=== PATIENT | female | born 1955 | race Caucasian/White ===

== ENCOUNTER → 2017-07-31 | Outpatient (CLI) | payer BC ==
--- NOTE | 2017-07-31 13:24 | MAMMOGRAPHY REPORT ---
BILATERAL DIGITAL SCREENING MAMMOGRAM TOMOSYNTHESIS WITH CAD: 07/31/2017 CLINICAL HISTORY: Routine screening. TECHNIQUE: Breast tomosynthesis in addition to standard 2D mammography was performed. Current study was also evaluated with a Computer Aided Detection (CAD) system. COMPARISON: Comparison is made to exams dated: 05/19/2016 mammogram, 05/02/2016 mammogram, 5 mammogram, 03/01/2014 mammogram, 08/02/2012 mammogram, and 07/30/2011 mammogram - [facility]. BREAST COMPOSITION: There are scattered areas of fibroglandular density in both breasts. FINDINGS: No suspicious masses, calcifications, or areas of architectural distortion are noted in ei ther breast. There has been no significant interval change compared to prior exams. Right lateral br east asymmetry appears stable to prior exams including the 2008 exam and is compatible with normal fi broglandular tissue. Bilateral benign-appearing calcifications are not significantly changed. IMPRESSION: ACR BI-RADS CATEGORY 2: BENIGN There is no mammographic evidence of malignancy. A 1 year screening mammogram is recommended. The pa tient will receive written notification of the results. Approximately 10% of breast cancers are not detected with mammography. A negative mammographic report should not delay biopsy if a clinically suggestive mass is present. Leticia Shaw M.D. /:07/31/2017 12:02:56 Hot Repairman: Evette HANSON)([place]), [facility] letter sent: Normal 1/2 BI-RADS Code: ACR BI-RADS Category 2: Benign
== END | disposition home or self-care (01) ==
LOC: C.MAMM 10:40
PROVIDERS: ATTEND Obstetrics & Gynecology
DX: Z12.31 Encounter for screening mammogram for malignant neoplasm of breast (principal)

== ENCOUNTER → 2018-02-03 | Day surgery (SDC) | payer BC ==
[2018-01-28 11:06] VITALS: Ht 162.6 cm; Wt 61.4 kg
[~2018-02-03] VITALS: Ht 162.6 cm; Wt 61.4 kg
[~2018-02-03] MED LIST: B-CO-25 PO; CALC-51 PO; COEN100C7 PO; FLAX12003 PO; FOLITAB13 PO; GLUCTAB7 PO; LIDOCAINE HCL 2% 2 ML VIAL (20MG/ML) ONE; LUTE15CA PO; LUTE6TAB PO; MAGN400T6 PO; MULT-506 PO; NIAC500T11 PO; OMEGCAP2 PO; PROPOFOL IV EMULSION 10 MG/ML 20 ML VIAL ONE; SODIUM CHLORIDE 0.9% 500ML 500 ML IV ONE
--- NOTE | 2018-02-03 10:46 | Endo History and Physical ---
History & Physical Date of Service: Feb 03, 2018. Chief Complaint: Screening Referring Physician: SHERYL Fleming History of Present Illness 62 yo CF who presents for screening colonoscopy. Past Surgical History Hx Cardiac Surgery: No Hx Internal Defibrillator: No Hx Pacemaker: No Hx Abdominal Surgery: Yes (APPY, TUBAL LIGATION) Hx of Implantable Prosthesis: No Hx Post-Op Nausea and Vomiting: No Hx Cancer Surgery: No Hx Thoracic Surgery: No Hx Orthopedic: No Hx Urinary Tract Surgery: No Family History None Social History Smoking Status: Former Smoker Hx Substance Use: Yes (MARIJUANA 3X A WEEK (ADVISED)) Hx Alcohol Use: Yes (RARELY) Allergies Coded Allergies: Hornet Venom (Verified Allergy, Intermediate, HIVES, 02/03/18) Wasp (Verified Allergy, Intermediate, HIVES, 02/03/18) Current Medications Reported Home Medications Medications Dose Route/Sig Max Daily Dose Days Date Category Niacin 500 Mg Tab 500 Mg PO DAILY 01/28/18 Reported Flaxseed Oil (Flaxseed (Linseed)) 1 Cap Cap 1 Cap PO DAILY 01/28/18 Reported Lutein (Lutein-Zeaxanthin) 1 Cap Cap 1 Cap PO DAILY 01/28/18 Reported Lutein W/Zeaxanthin (Lutein-Zeaxanthin) 1 Tab Tab 1 Tab PO DAILY 01/28/18 Reported Folic Acid Xtra (Folic Acid-Vit B2-Vit B6-Vit B) 1 Tab Tab 100 Mcg PO DAILY 01/28/18 Reported Super B Complex Maxi (B-Complex W/ Folic Acid) 1 Tab Tab 1 Tab PO DAILY 01/28/18 Reported Coq10 (Coenzyme Q10 (Ubidecarenone)) 100 Mg Cap 1 Tab PO DAILY 01/28/18 Reported Glucosamine Chondroitin (Hwrhtpivwig-Wpipzekfkgc-Bdh C-) 1 Tab Tab 1 Tab PO DAILY 01/28/18 Reported Mag-Ox (Magnesium Oxide) 400 Mg Tab 400 Mg PO DAILY 01/28/18 Reported Calcium (Calcium Carbonate-Vitamin D) 1 Tab Tab 1 Tab PO DAILY 01/28/18 Reported Fish Oil ([place]-3 Fatty Acids) 1 Cap Cap 1 Cap PO DAILY 01/28/18 Reported Multivitamin (Multivitamins) Tab 1 Tab PO DAILY 01/28/18 Reported Vital Signs Weight (Kilograms): 61.36 Height (Feet): 5 Height (Inches): 4 Date Time Temp Pulse Resp B/P (MAP) Pulse Ox O2 Delivery O2 Flow Rate FiO2 02/03/18 09:47 36.7 54 18 122/75 (91) 100 Room Air Physical Exam General Appearance: WD/WN, no apparent distress Respiratory/Chest: Auscultation: breath sounds normal Cardiovascular: Heart Auscultation: RRR Abdomen: Bowel Sounds: normal Inspection & Palpation: soft, non-distended, no tenderness, guarding & rebound Assessment and Plan Assessment: 62 yo CF who presents for screening colonoscopy. Plan: Proceed with colonoscopy.
[2018-02-03 11:49] VITALS: BP 100/89; PULSE 60; O2SAT 98
--- NOTE | 2018-02-03 12:03 | Anesthesiology Progress Note ---
Anesthesia Post Op Note Date & Time Feb 03, 2018 at 12:02 Vital Signs Pain Intensity: 0 Vital Signs Past 12 Hours Date Time Temp Pulse Resp B/P (MAP) Pulse Ox O2 Delivery O2 Flow Rate FiO2 02/03/18 11:49 60 20 100/89 (93) 98 Room Air 02/03/18 11:34 67 20 109/80 (90) 100 Room Air 02/03/18 11:19 66 20 119/75 (90) 98 Room Air 02/03/18 09:47 36.7 54 18 122/75 (91) 100 Room Air Notes Mental Status: alert / awake / arousable, participated in evaluation Pt Amnestic to Procedure: Yes Nausea / Vomiting: adequately controlled Pain: adequately controlled Airway Patency, RR, SpO2: stable & adequate BP & HR: stable & adequate Hydration State: stable & adequate Anesthetic Complications: no major complications apparent
--- NOTE | 2018-02-03 12:16 | GI REPORT ---
Patient Name: Nam Dubose Procedure Date: 02/03/2018 10:55 AM Date of : 1955 Admit Type: Outpatient Age: 62 Gender: Female Attending MD: Reji Bardales DO Procedure: Colonoscopy Providers: Reji Bardales DO Referring MD: SHERYL Dickey Indications: Screening for colorectal malignant neoplasm Medicines: Monitored Anesthesia Care Complications: No immediate complications. Estimated Blood Loss: Estimated blood loss: none. Procedure: Pre-Anesthesia Assessment: - Prior to the procedure, a History and Physical was performed, and patient medications and allergies were reviewed. The patient's tolerance of previous anesthesia was also reviewed. The risks and benefits of the procedure and the sedation options and risks were discussed with the patient. All questions were answered, and informed consent was obtained. Prior Anticoagulants: The patient has taken no previous anticoagulant or antiplatelet agents. ASA Grade Assessment: II - A patient with mild systemic disease. After reviewing the risks and benefits, the patient was deemed in satisfactory condition to undergo the procedure. After I obtained informed consent, the scope was passed under direct vision. Throughout the procedure, the patient's blood pressure, pulse, and oxygen saturations were monitored continuously. The scope was introduced through the anus and advanced to the terminal ileum. The colonoscopy was performed without difficulty. The patient tolerated the procedure well. The quality of the bowel preparation was good. The terminal ileum, ileocecal valve, appendiceal orifice, and rectum were photographed. Findings: The perianal and digital rectal examinations were normal. Multiple small-mouthed diverticula were found in the sigmoid colon. Non-bleeding internal hemorrhoids were found during retroflexion. The hemorrhoids were small. Impression: - Diverticulosis in the sigmoid colon. - Non-bleeding internal hemorrhoids. - No specimens collected. Recommendation: - Resume previous diet. - Continue present medications. - Repeat colonoscopy in 10 years for surveillance. - Return to primary care physician as previously scheduled. Reji Bardales DO 02/03/2018 12:16:02 PM This report has been signed electronically. Note Initiated On: 02/03/2018 10:55 AM Number of Addenda: 0 I attest to the content of the Intraoperative Record and orders documented therein, exceptions below {[id number]}
--- NOTE | 2018-02-03 13:15 | Discharge Instructions ---
Endoscopy Patient Instructions Date / Procedure(s) Performed Feb 03, 2018. Colonoscopy Allergy Information Coded Allergies: Hornet Venom (Verified Allergy, Intermediate, HIVES, 02/03/18) Wasp (Verified Allergy, Intermediate, HIVES, 02/03/18) Discharge Date / Findings Feb 03, 2018. Diverticulosis Internal hemorrhoids Medication Instructions Stopped Medication(s): Patient was told to stop some of her supplements. OK to resume all medications today as prescribed Reported Home Medications Medications Dose Route/Sig Max Daily Dose Days Date Category Niacin 500 Mg Tab 500 Mg PO DAILY 01/28/18 Reported Flaxseed Oil (Flaxseed (Linseed)) 1 Cap Cap 1 Cap PO DAILY 01/28/18 Reported Lutein (Lutein-Zeaxanthin) 1 Cap Cap 1 Cap PO DAILY 01/28/18 Reported Lutein W/Zeaxanthin (Lutein-Zeaxanthin) 1 Tab Tab 1 Tab PO DAILY 01/28/18 Reported Folic Acid Xtra (Folic Acid-Vit B2-Vit B6-Vit B) 1 Tab Tab 100 Mcg PO DAILY 01/28/18 Reported Super B Complex Maxi (B-Complex W/ Folic Acid) 1 Tab Tab 1 Tab PO DAILY 01/28/18 Reported Coq10 (Coenzyme Q10 (Ubidecarenone)) 100 Mg Cap 1 Tab PO DAILY 01/28/18 Reported Glucosamine Chondroitin (Uszdppwmrco-Jrouxukgkiv-Zgf C-) 1 Tab Tab 1 Tab PO DAILY 01/28/18 Reported Mag-Ox (Magnesium Oxide) 400 Mg Tab 400 Mg PO DAILY 01/28/18 Reported Calcium (Calcium Carbonate-Vitamin D) 1 Tab Tab 1 Tab PO DAILY 01/28/18 Reported Fish Oil ([place]-3 Fatty Acids) 1 Cap Cap 1 Cap PO DAILY 01/28/18 Reported Multivitamin (Multivitamins) Tab 1 Tab PO DAILY 01/28/18 Reported Provider Instructions Activity Restrictions - No exercising or heavy lifting for 24 hours. - Do not drink alcohol the day of the procedure. - Do not drive a car or operate machinery until the day after the procedure. - Do not make any important decisions or sign important papers in 24 hours after the procedure. Following Day: - Return to full activity which may include returning to work/school. Diet Start your diet with liquids and light foods (jello, soup, juice, toast). Then eat your usual diet if not nauseated. Treatment For Common After Affects For mild abdominal pain, bloating, or excessive gas: - Rest - Eat lightly - Lie on right side Follow-Up Information Follow-up with SHERYL Fleming as scheduled Anesthesia Information What You Should Know You have had a procedure that required some medicine to reduce anxiety and discomfort. This treatment is called moderate sedation. After receiving the treatment, you may be sleepy, but you will be able to breathe on your own. The effects of the treatment may last for several hours. Follow these instructions along with Activity/Diet recommendations noted above: * Do NOT do anything where dizziness or clumsiness would be dangerous. * Rest quietly at home today, then you can be up and about tomorrow. * Have a responsible person stay with you the rest of today. * You may have had an I.V. today. If so, you may take the dressing off later today. Recommendations Call your doctor if: * Trouble breathing * Continuous vomiting for more than 24 hours * Temperature above 101 degrees * Severe abdominal pain or bloating * Pain not relieved by pain medicine ordered * There is increased drainage or redness from any incision * A large amount of rectal bleeding greater than 2-3 tablespoons. (If you had a polyp/s removed or have hemorrhoids, a small amount of blood - from the rectum is to be expected.) * You have any unanswered questions or concerns. IN THE EVENT OF A SERIOUS EMERGENCY, GO TO THE NEAREST EMERGENCY ROOM Your discharge instructions were prepared by provider Reji Bardales. Patient Instructions Signature Page Nam Dubose Patient (or Guardian) Signature/Date: I have read and understand the instructions given to me by my caregivers. Caregiver/RN/Doctor Signature/Date: The above-named patient and/or guardian has received patient instructions on this date. + Original Patient Signature Page (only) stays with chart. Please make copy for patient.
== END | disposition home or self-care (01) ==
LOC: C.GI 09:12
PROVIDERS: ATTEND Internal Medicine
DX: Z12.11 Encounter for screening for malignant neoplasm of colon (principal); K57.30 Diverticulosis of large intestine without perforation or abscess without bleeding; K64.8 Other hemorrhoids; Z87.891 Personal history of nicotine dependence; F12.90 Cannabis use, unspecified, uncomplicated; Z79.899 Other long term (current) drug therapy; E11.9 Type 2 diabetes mellitus without complications